=== PATIENT | female | born 2000 | race Caucasian/White ===

== ENCOUNTER 2019-04-13 16:11 | Emergency (ER) | payer BC, SELFPAY ==
[2019-04-13 16:27] VITALS: BP 130/71; PULSE 95; RESP 16; TEMP 37.1; O2SAT 99
--- NOTE | 2019-04-13 16:31 | ED.URI ---
HPI - URI/Sore Throat General Chief Complaint: Dizziness Stated Complaint: dizzy headache blurry vision Time Seen by Provider: 04/13/19 16:31 Source: patient and RN notes reviewed History of Present Illness HPI Narrative: Patient is a 18-year-old female that presents the urgent care with vague symptoms of intermittent dizziness, blurry vision and headache. Patient states that right now she does not have any of the above symptoms. 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 Patient states she was seen at another urgent care in February and was diagnosed with vertigo and given meclizine and antibiotic. Patient states that the meclizine did help her symptoms in that case. Patient is unsure of why the antibiotic was given at that time and states that she has not tried the meclizine in the last 2 days of recurrent symptoms. Patient states she also has intermittent nausea. States that she does not think she is and had a period approximately 1 month ago. Patient was specifically asked if she was wanting something to be specifically tested or her specific complaint, patient had a very flat affect. Patient is very vague with symptoms. Denies all above symptoms at this time. No acute distress noted. Patient did drive to the facility on her own and neuro exam is completely intact. Patient aware of the plan of care. Related Data Home Medications Medication Instructions Recorded Confirmed norethindrone ac-eth estradiol 1 tablet PO DAILY 04/13/19 04/13/19 [Loestrin / (21)] Allergies Allergy/AdvReac Type Severity Reaction Status Date / Time No Known Allergies Allergy Verified 04/13/19 16:39 Review of Systems Review of Systems: Narrative: CONSTITUTIONAL: Denies fever, chills, or sweats. EYES: Denies visual changes, redness, or discharge. ENT: Denies rhinorrhea, congestion, sore throat, or otalgia. CARDIOVASCULAR: Denies chest pain, palpitations, or edema. RESPIRATORY: Denies cough or dyspnea. GASTROINTESTINAL: Denies abdominal pain, nausea, vomiting, or diarrhea. GENITOURINARY: Denies dysuria or hematuria. SKIN: Denies rash or itching. MUSCULOSKELETAL: Denies back pain, joint pain, or myalgia. NEUROLOGIC: Reports of slight headache with intermittent blurry vision and dizziness-denying blurry vision and dizziness Psychiatric: Very flat affect All other systems reviewed are negative, except as documented in HPI. PMFSH Comments At the time of my signature, I reviewed and agree with the nursing past medical, surgical, social, and family history. There is no relevant family history pertinent to the patient complaint. Exam Narrative: Exam Narrative: GENERAL: This is a well-nourished, well-developed patient, in no apparent distress. HEAD: normocephalic, atraumatic. EYES: PERRL. Sclera clear/white. Vision is grossly intact. EARS: External ears normal, auditory canals clear and without drainage, TMs normal without perforation. Hearing grossly intact. NOSE: External nose normal with no obvious nasal discharge, nares without redness, no rhinorrhea. THROAT: Mucous membranes moist, posterior pharynx clear. NECK: Neck supple, non-tender without lymphadenopathy, masses or thyromegaly. CARDIOVASCULAR: Regular rate and rhythm without murmurs, gallops, or rubs. RESPIRATORY: Clear to auscultation. Breath sounds equal bilaterally. No wheezes, rales, or rhonchi. SKIN: warm, intact with no suspicious lesions or rash, good texture and turgor. NEURO: awake, alert, and oriented to person, place and time. There were no obvious focal neurologic abnormalities. EXTREMITIES: No clubbing, cyanosis, or edema. Completely negative and normal exam. Course Vital Signs Vital signs: Vital Signs Temperature 98.8 F 04/13/19 16:27 Pulse Rate 95 04/13/19 16:27 Respiratory Rate 16 04/13/19 16:27 Blood Pressure 130/71 04/13/19 16:27 Puls
== END 2019-04-13 17:02 | disposition home or self-care (01) ==
PROVIDERS: Emergency Provider Nurse Practitioner Family
DX: R42 Dizziness and giddiness (principal)
CPT/HCPCS: 99201; G0463